=== PATIENT | female | born 1950 | race African-American/Black ===

== ENCOUNTER 2019-09-02 22:28 | Emergency (ER) | payer BC, MEDICARE ==
[~2019-09-02] VITALS: Ht 160 cm; Wt 98.0 kg
[2019-09-03 00:12] LABS: CHLORIDE 107 mEq/L (98-107)
[2019-09-03 00:14] LABS: BASOPHILS % 0.2 % (0.0-2.0); EOSINOPHILS % 1.3 % (0.0-5.0); HEMATOCRIT. 43.9 % (36.0-48.0); HEMOGLOBIN. 14.6 g/dL (12.0-16.0); LYMPHOCYTES % 33.5 % (20.0-50.0); MEAN CORPUSCULAR HEMOGLOBIN 28.7 pg (28.0-32.0); MEAN CORPUSCULAR VOLUME 86.6 fL (81.0-99.0); MEAN PLATELET VOLUME 8.1 fl (7.4-10.4); PLATELET 243 x1000/uL (130-400); RED BLOOD CELL COUNT 5.06 mill/uL (4.2-5.4); RED CELL DISTRIBUTION WIDTH 15.1 % (11.6-14.6)
[2019-09-03] MEDS ORDERED: POTASSIUM CHLORIDE 20MEQ TABLET SR PO ONE (01:15)
[2019-09-03] MEDS ORDERED: MAGNESIUM/ALUMINUM HYDROXIDE/SIMETHICONE 30ML UDC PO PRN (08:30)
[2019-09-03] MEDS ORDERED: OMEPRAZOLE 20MG CAPSULE EXTENDED RELEASE PO NR (08:30)
[2019-09-03] MEDS ORDERED: ALPRAZOLAM 0.25 MG TABLET PO PRN (08:30)
[2019-09-03] MEDS ORDERED: ENOXAPARIN 40MG/0.4ML SYR SUBCUT SCH (08:30)
[2019-09-03] MEDS ORDERED: ZOLPIDEM TARTRATE 5MG TABLET PO PRN (08:30)
[2019-09-03] MEDS ORDERED: ACETAMINOPHEN 325MG TABLET PO PRN (08:30)
[2019-09-03] MEDS ORDERED: GUAIFENESIN 200MG/10ML SUGAR FREE UDC PO PRN (08:30)
[2019-09-03] MEDS ORDERED: ALPRAZOLAM 0.25 MG TABLET PO NR (08:30)
[2019-09-03] MEDS ORDERED: IPRATROPIUM/ALBUTEROL 0.5-3(2.5)MG/3ML NEB HHN PRN (08:30)
[2019-09-03] MEDS ORDERED: CLONIDINE 0.1MG TABLET PO PRN (08:30)
[2019-09-03] MEDS ORDERED: TRAMADOL 50MG TABLET PO PRN (08:45)
[2019-09-03] MEDS ORDERED: ALBUTEROL 6.7GM HFA INHALER ORI PRN (08:45)
[2019-09-03] MEDS ORDERED: DOCUSATE SODIUM 250MG CAPSULE PO SCH (09:00)
[2019-09-03] MEDS ORDERED: FLUTICASONE/VILANTEROL 200-25 BLST.W.DEV ORI SCH (09:00)
[2019-09-03 09:07] LABS: BG BASE EXCESS 0.8 mmol/L (-2.0-2.0); BG CARBOXYHEMOGLOBIN 0.8 % (0.5-1.5); BG DEOXYHEMOGLOBIN 3.7 % (0.0-5.0); BG FRACTION INSPIRED OXYGEN 21; BG HCO3 ACT 25.8 mmol/L (22.0-26.0); BG OXYGEN SATURATION 96.3 % (92.0-98.5); BG OXYHEMOGLOBIN 95.5 % (94.0-97.0); BG PCO2 42.5 mmHg (35.0-45.0); BG PH 7.401 (7.350-7.450); BG SAMPLE SITE RIGHT RADIAL; BG TOTAL HEMOGLOBIN 13.1 g/dL (12.0-18.0); BG VENT MODE ROOM AIR
[2019-09-03] MEDS ORDERED: ENOXAPARIN 30MG/0.3ML SYR SUBCUT SCH (11:30)
[2019-09-03] MEDS ORDERED: SODIUM CHL 0.45% + KCL 20MEQ/L 1,000 ML IV ONE (11:30)
[2019-09-03] MEDS ORDERED: LOSARTAN POTASSIUM 100 MG TABLET PO NR (11:30)
[2019-09-03] MEDS ORDERED: MELOXICAM 7.5MG TABLET PO NR (11:30)
[2019-09-03] MEDS ORDERED: NIFEDIPINE XL 90MG TAB PO NR (11:30)
[2019-09-03] MEDS ORDERED: POTASSIUM CHLORIDE 20MEQ TABLET SR PO NR (12:15)
[2019-09-03 14:50] VITALS: BP 129/71
[2019-09-04] MEDS ORDERED: SODIUM CHL 0.45% + KCL 20MEQ/L 1,000 ML IV SCH
[2019-09-04] MEDS ORDERED: OMEPRAZOLE 20MG CAPSULE EXTENDED RELEASE PO SCH (07:50)
[2019-09-04] MEDS ORDERED: LOSARTAN POTASSIUM 100 MG TABLET PO SCH (09:00)
[2019-09-04] MEDS ORDERED: MELOXICAM 7.5MG TABLET PO SCH (09:00)
[2019-09-04] MEDS ORDERED: NIFEDIPINE XL 90MG TAB PO SCH (09:00)
== END 2019-09-03 14:55 | disposition home or self-care (01) ==
LOC: ER 22:28 → EDBEDREQ 09-03 01:13 → EDBEDREQTM 09-03 01:13 → ER 09-03 14:55 → CANBEDREQ 09-03 16:55
DX: Z03.818 Encounter for observation for suspected exposure to other biological agents ruled out (principal); J45.901 Unspecified asthma with (acute) exacerbation; I10 Essential (primary) hypertension; E78.00 Pure hypercholesterolemia, unspecified; E87.6 Hypokalemia; F41.1 Generalized anxiety disorder; E11.65 Type 2 diabetes mellitus with hyperglycemia; M15.9 Polyosteoarthritis, unspecified; E66.01 Morbid (severe) obesity due to excess calories; Z68.38 Body mass index [BMI] 38.0-38.9, adult; Z90.710 Acquired absence of both cervix and uterus
CPT/HCPCS: 36415; 36600; 71045; 80053; 80061; 82375; 82805; 82962; 83036; 83880; 84484; 85025; 93005; 93880; 93970; 96365; 96366; 99285; C9803; J3480; U0003